=== PATIENT | male | born 1955 | race Caucasian/White ===

== ENCOUNTER 2020-02-22 09:58 | Outpatient (CLI) | payer MEDICARE, SELFPAY ==
--- NOTE | 2020-02-22 10:48 | ECG_ITS ---
Measurements Intervals [place] Rate: 70 P: 60 VT: 155 QRS: 25 QRSD: 86 T: 42 QT: 365 QTc: 395 Interpretive Statements SINUS RHYTHM NORMAL ECG Electronically Signed On 02-22-2020 10:54:12 [employer] by Malvin Whitman D.O.
[2020-02-22 11:07] LABS: Basophils Absolute Auto 0.1 K/mm3 (0.0-0.1); Basophils Percent Auto 0.9 % (0.2-1.2); Eosinophils Absolute Auto 0.1 K/mm3 (0-0.3); Eosinophils Percent Auto 1.7 % (0-4.4); Hematocrit 42.7 % (42.0-52.0); Lymphocytes Absolute Auto 1.42 K/mm3 (0.9-3.2); Lymphocytes Percent Auto 26.6 % (18.3-44.2); Mean Corpuscular HGB Conc 32.8 g/dl (32-36); Mean Corpuscular Hemoglobin 31.4 pg (26-34); Mean Corpuscular Volume 95.7 fl (80-100); Mean Platelet Volume 9.4 fl (7.4-10.4); Monocytes Absolute Auto 0.5 K/mm3 (0.1-0.6); Monocytes Percent Auto 8.8 % (2.6-8.5); Neutrophils Absolute Auto 3.3 K/mm3 (1.3-6.7); Platelet Count Result 223 k/mm3 (150-375); Red Blood Count 4.46 M/mm3 (4.6-6.20); Red Cell Distribution Width 13.3 % (11.5-14.5); White Blood Count 5.3 K/mm3 (4.5-10.0)
[2020-02-22 11:18] LABS: Alanine Aminotransferase 20 U/L (4-50); Albumin Level 4.3 g/dL (3.5-5.1); Alkaline Phosphatase 56 U/L (38-126); Anion Gap 5 mmol/L (8-16); Aspartate Amino Transferase 27 U/L (17-59); Bilirubin,Total 0.4 mg/dL (0.2-1.3); Blood Urea Nitrogen 15 mg/dL (9-20); Calcium 9.3 mg/dL (8.4-10.2); Carbon Dioxide 32 mmol/L (22-30); Chloride 104 mmol/L (98-107); Estimated Glomerular Filt Rate > 60; Glucose 100 mg/dL (75-110); Potassium 4.5 mmol/L (3.4-5.0); Sodium 141 mmol/L (137-145)
[2020-02-22 11:20] LABS: INR 0.9; Prothrombin Time 13.1 Seconds (11.1-14.7)
[2020-02-22 11:21] LABS: Partial Thromboplastin Time 26.4 SECONDS (22.3-36.8)
== END 2020-02-22 09:59 | disposition home or self-care (01) ==
LOC: ANHSURGERY 10:07
PROVIDERS: Visit Provider Urology
DX: Z01.818 Encounter for other preprocedural examination (principal); C61 Malignant neoplasm of prostate
CPT/HCPCS: 36415; 80053; 85025; 85610; 85730; 86850; 86900; 86901; 93005

== ENCOUNTER 2020-03-01 00:34 | Outpatient (CLI) | payer MEDICARE, SELFPAY ==
[2020-03-01 20:15] LABS: SARS-CoV-2 RNA PCR Negative
== END 2020-03-01 00:35 | disposition home or self-care (01) ==
LOC: ANHCOVIDDT 00:34
PROVIDERS: Visit Provider Urology
DX: Z01.812 Encounter for preprocedural laboratory examination (principal); Z11.59 Encounter for screening for other viral diseases
CPT/HCPCS: 87635; C9803; U0003

== ENCOUNTER 2020-03-06 08:37 | Observation (INO) | payer MEDICARE, SELFPAY ==
[2020-02-22 09:24] VITALS: BP 138/70; PULSE 68; RESP 20; TEMP 37.2; O2SAT 100
[2020-02-22 10:25] VITALS: BMI 25.0
[2020-03-04] VITALS (15 sets, daily range): BP systolic 109–151; BP diastolic 58–84; PULSE 80–117; RESP 11–20; TEMP 36.1–36.9; O2SAT 94–100
--- NOTE | 2020-03-04 06:07 | WPDHPUPDATE1 ---
History and Physical Update Update Date/Time: 03/04/20 06:07 History and Physical has been reviewed, including an updated exam of the patient. There are NO changes in the patient's condition. Risks, benefits, and alternatives have been discussed and questions answered. Patient agrees to proceed with procedure. Proceed with robotic assist nerve sparing prostatectomy with possible plnd
[2020-03-04] MEDS: LACTATED RINGERS 1,000 ML 30 ML IV CONT ×2 (06:37→11:44)
--- NOTE | 2020-03-04 06:58 | P.PNAN_ITS ---
Anes - Initial Pre Proc Eval Procedure: Operation Date: 03/04/20 07:30 Proposed Procedures p Robotic Assisted Nerve Sparing Prostatectomy, Possible Pelvic Lymph Node Dissection - Wilmer Rojas MD Date/Time: 03/04/20 06:58 Surgeon: Wilmer Rojas MD Pre Op Diagnosis: Prosate Ca Patient Data Age: 64 Gender: M Height: 1.68 m Weight: 70.2 kg Last Vital Signs Temp 37.2 C 02/22/20 09:24 Pulse 68 02/22/20 09:24 Resp 20 02/22/20 09:24 BP 138/70 02/22/20 09:24 Pulse Ox 100 02/22/20 09:24 Allergies Allergy/AdvReac Type Severity Reaction Status Date / Time meperidine [From Demerol] Allergy Severe Hives Verified 03/04/20 06:08 Home Medications Medication Instructions Recorded Confirmed Type famotidine-Ca carb-mag hydrox 1 tablet PO HS 02/22/20 03/04/20 History [Pepcid Complete] Patient hx anesthesia problems: none Family hx anesthesia problems: none [facility] Past Medical History Medical History (Updated 03/04/20 @ 06:58 by Adama Mcelroy DO) GERD (gastroesophageal reflux disease) Prostate cancer Social History Social History Smoking status: Never smoker Alcohol intake: current Alcohol use details: STATES MAYBE 3 BEERS/MONTH Substance use: never Living arrangements: with family Spiritual care concerns: No Anes - Eval Final PreProcedure Day of Procedure 03/04/20 06:58 Patient weight: normal Heart: regular rate and rhythm Lungs: clear to auscultation and normal air movement Airway: Mallampati scale class II Neurological: alert and oriented Last oral intake: >/= 8 hours ASA classification: III Emergent: no Anesthetic plan: proceed Anesthesia type and monitoring: general ETT and standard monitoring Informed Consent: The patient's anesthetic plan and its attendant risks and benefits were discussed with the patient/family/POA. Questions were solicited and answers provided to the satisfaction of the patient/family/POA.
[2020-03-04] MEDS: ceFAZolin 2 GM/D5W 50 ML 2 GM/50 ML BAG IVPB (07:15)
[2020-03-04] MEDS: BUPIVACAINE HCL 0.5% PF 30 ML VIAL INFILTRATE (08:10)
--- NOTE | 2020-03-04 11:30 | P.OP_ITS ---
Procedure Note - Detailed Date of procedure: 03/04/20 Pre-op diagnosis: Prosate Ca Post-op diagnosis: same Procedure performed: Robotic assisted nerve-sparing prostatectomy with left pelvic lymph node dissection Description of procedure: Patient is taken to the operative suite and correctly identified. Once anesthesia was obtained was placed in dorsal lithotomy position and prepped and draped usual sterile fashion. Eighteen Japanese Roberson was placed with 20 cc in balloon. We made a supraumbilical incision and carried it down to the rectus fascia. Veress needle was inserted the abdomen was insufflated to 15 mmHg pressure. Camera port trocar was then placed in direct vision. The other appropriate working ports were then placed in their standard locations. The robot was docked after the patient was placed in steep Trendelenburg. We started out by taking down some adhesions along the left side where the sigmoid colon is. We then did a posterior approach. The seminal vesicles were dissected out in their entirety. The vas were transected. Plane between the prostate and the rectum was developed. Bladder was then taken down in a standard fashion. Space of Retzius was developed bilaterally. Puboprostatic ligaments were taken down. Dorsal venous complex was isolated using an 0 Vicryl in secured to the pubic bone. Bladder neck was then opened. He has very prominent lobes bilaterally which were pushing into the bladder and this was visualized on cystoscopy preoperatively. It was apparent that the bladder neck would have a wider opening. We were able to dissect the bladder off the prostate. An open the posterior bladder neck. Previously dissected seminal vesicles were visualized. Pedicles were taken using clips. Bilateral nerve-sparing was then performed in a standard fashion. Prostate was then dissected off of the rectum. Dorsal venous complex was then transected the urethra was also transected. Specimen was placed in Endo-Catch bag. Left pelvic lymph node dissection was then performed as he was positive on the left side. Borders were the external iliac vein, Andrew's ligament, obturator nerve, and bifurcation of the vessels. The obturator nerve was visualized at all times. Clips were placed proximally and distally on the lymph node packet. Surgicel was then placed in the fossa. Bladder neck was then reconstructed by placing 2 0 Vicryl at the 3 and 9 o'clock position. We then reapproximated the non VA Anurag the posterior urethral tissue. V lock suture was then used to anastomose the urethral stump to the bladder neck. There was good mucosa to mucosa approximation throughout. Eighteen Japanese Roberson with 10 cc in the balloon was then placed. The bladder was irrigated with 120 cc no evidence for extravasation. Mingo drain was then placed through the 3rd working port site an d secured. All lap count needle count sponge counts were correct. Blood loss was approximately 100 cc. The specimen was brought out through the midline incision. Rectus fascia was closed using 0 Vicryl in a running fashion. Subcuticular stitch was were then placed. Condition is stable on transfer to recovery room. Surgeon: Wilmer Rojas MD Estimated blood loss (mL): 100 Drains: Yes Packing: No Pathology: yes Complications: No immediate complications Condition: stable Disposition: PACU
[2020-03-04] MEDS: fentaNYL CITRATE INJ (*CRX) 100 MCG/2 ML VIAL 25 MCG IV PUSH ×2 (12:32→12:50)
--- NOTE | 2020-03-04 13:00 | PC.NURSE ---
This patient, Esvin Rosa, was admitted to 2 Medical Room 241-01. Patient/family oriented to hospital policies and general routines including ID bracelet, bed and alarms, visiting hours, pain management, procedures, bathroom and other care routines, personal items, smoking policy, room service/diet, and visiting hours. Information on how to activate the Rapid Response Team has been discussed. Patient/Family are encouraged to report perceived risks to care and to ask questions if they do not understand what they are told or what they should do.
[2020-03-04] MEDS: LACTATED RINGERS 1,000 ML 125 ML IV CONT ×2 (13:26→20:53)
[2020-03-04] MEDS: ONDANSETRON INJ 4 MG/2 ML VIAL IV PUSH (13:26)
[2020-03-04] MEDS: HYDROcodone/acetaminophen (*CRX) 5-325 MG TABLET 1 TAB PO (13:32)
[2020-03-05] VITALS (7 sets, daily range): BP systolic 103–139; BP diastolic 58–73; PULSE 77–98; RESP 16–18; TEMP 36.1–37; O2SAT 97–100
[2020-03-05] MEDS: HYDROcodone/acetaminophen (*CRX) 5-325 MG TABLET 1 TAB PO (01:28)
--- NOTE | 2020-03-05 01:39 | PC.NURSE ---
Pt awake and pain meds given, states hand and wrist are still numb but better.
[2020-03-05] MEDS: HYOSCYAMINE SULFATE 0.125 MG TABLET SUBLINGUAL ×3 (02:03→18:12)
[2020-03-05] MEDS: LACTATED RINGERS 1,000 ML 125 ML IV CONT (04:57)
[2020-03-05 05:55] LABS: Hematocrit 31.4 % (42.0-52.0); Hemoglobin 10.7 g/dL (14.0-18.0)
[2020-03-05 06:25] LABS: Anion Gap 2 mmol/L (8-16); Blood Urea Nitrogen 13 mg/dL (9-20); Carbon Dioxide 31 mmol/L (22-30); Chloride 102 mmol/L (98-107); Estimated CRCL calculation 82 ml/min; Estimated Glomerular Filt Rate > 60; Glucose 99 mg/dL (75-110); Potassium 4.2 mmol/L (3.4-5.0); Sodium 135 mmol/L (137-145)
[2020-03-05] MEDS: ACETAMINOPHEN 500 MG TABLET 1000 MG PO ×2 (08:28→18:07)
--- NOTE | 2020-03-05 12:53 | WPDUROPN2 ---
Progress Note: A&P Assessment and Plan (1) Prostate cancer: Code(s): C61 - Malignant neoplasm of prostate Status: Inactive Assessment and Plan: Patient encouraged to be more active at this time. He is ok to be discharged when he feels that he is ready to go. He is stable enough to be discharged at anytime. Ok to remove KORY drain, keep marks in until after Cystogram. Subjective Subjective Date/Time Seen: 03/05/20 12:53 POD #1 Robotic assisted nerve-sparing prostatectomy with left pelvic lymph node dissection Patient doing very well, pain under good control. Wants to get up and move around to determine if he is well enough to go home. Review of Systems Respiratory: Respiratory: Reports no additional respiratory complaints Gastrointestinal: Gastrointestinal: Reports abdominal pain, Denies nausea and Denies vomiting Genitourinary: Genitourinary: Denies hematuria and Denies flank pain Exam Resp: Effort & Inspection: normal respiratory effort Cardio: Rate: regular rate GI: Inspection: incision (all are well approximated, no drainage or edema present) GI Palp: Yes Soft to palpation and No Tenderness to palpation present (GI) : General: Yes no CVA tenderness Urinary Catheter: Urinary Catheter: patent and draining and urine clear Extrem: General: no edema Objective Data Vital Signs Vital Signs: Vital Signs - 24 hr 03/04/20 12:55 03/04/20 13:20 03/04/20 13:35 Temperature 97.1 F L 97.3 F L Pulse Rate 87 99 97 Respiratory Rate 18 16 16 Blood Pressure 121/84 136/64 131/63 Pulse Oximetry 94 100 96 03/04/20 14:05 03/04/20 15:05 03/04/20 19:00 Temperature 97.5 F L 97.8 F 98.5 F Pulse Rate 102 H 96 104 H Respiratory Rate 16 16 16 Blood Pressure 130/62 132/70 128/70 Pulse Oximetry 98 97 98 03/04/20 20:00 03/04/20 21:18 03/04/20 22:43 Temperature 98.3 F 98.3 F Pulse Rate 117 H 87 Respiratory Rate 20 16 Blood Pressure 142/70 H 109/60 Pulse Oximetry 99 99 97 03/05/20 06:43 03/05/20 08:28 03/05/20 09:39 Temperature 97.0 F L 98.3 F Pulse Rate 98 95 Respiratory Rate 16 18 18 Blood Pressure 103/66 125/67 Pulse Oximetry 97 97 97 Intake/Output Intake/Output: Intake & Output 03/02/20 03/03/20 03/04/20 03/05/20 23:59 23:59 23:59 23:59 Intake Total 3590 1780 Output Total 675 2450 Balance 2915 -274 Meds/Results Medications: Active Medications Generic Name Dose Route Start Last Admin Trade Name Freq PRN Reason Stop Dose Admin Acetaminophen 1,000 mg 03/05/20 01:18 03/05/20 08:28 Acetaminophen 500 Mg Tablet PO 1,000 mg Q6H PRN Administration Mild Pain (1-3) or Fever Hydrocodone Bitart/Acetaminophen 1 tab 03/04/20 12:58 03/05/20 01:28 Hydrocodone/Acetaminophen (*Crx) 5-325 Mg Tablet PO 1 tab Q6H PRN Administration Pain Rated 1-3 Hydrocodone Bitart/Acetaminophen 2 tab 03/04/20 12:58 Hydrocodone/Acetaminophen (*Crx) 5-325 Mg Tablet PO Q6H PRN Pain Rated 4-6 Hyoscyamine 0.125 mg 03/04/20 12:58 03/05/20 08:26 Hyoscyamine Sulfate 0.125 Mg Tablet SUBLINGUAL 0.125 mg Q4H PRN Administration Bladder Spasm Lactated Ringer's 1,000 mls @ 125 mls/hr 03/04/20 12:58 03/05/20 04:57 Lr - Lactated Ringers Iv IV CONT 125 mls/hr .Q8H BELLE Administration Ketorolac Tromethamine 15 mg 03/04/20 12:58 Ketorolac 15 Mg/Ml Vial (*Bkc) IV PUSH 03/05/20 12:59 Q6H PRN Pain Rated 4-6 Levofloxacin 500 mg 03/05/20 09:00 03/05/20 08:26 Levofloxacin Tab 500 Mg Tablet PO 500 mg DAILY BELLE Administration Naloxone HCl 0.1 mg 03/04/20 12:58 Naloxone Hcl 0.4 Mg/Ml Vial IV PUSH Q2M PRN Opiate Reversal Ondansetron HCl 4 mg 03/04/20 12:58 03/04/20 13:26 Ondansetron Inj 4 Mg/2 Ml Vial IV PUSH 4 mg Q6H PRN Administration Nausea And Vomiting Labs Labs: Laboratory Results - last 24 hr 03/05/20 03/05/20 05:13 05:13 Hgb 10.7 L D Hct 31.4 L Sodium 13
--- NOTE | 2020-03-05 14:10 | P.PNAN_ITS ---
Anes - Prog Note Post-Op Date/Time: 03/05/20 14:10 Cardiovascular status: normal Respiratory status: normal Airway patency: baseline Mental status: baseline Post-Op hydration status: normal Vital Signs: Last Vital Signs Temp 36.7 C 03/05/20 13:14 Pulse 98 03/05/20 13:14 Resp 18 03/05/20 13:14 BP 139/58 L 03/05/20 13:14 Pulse Ox 100 03/05/20 13:14 Pain Score (VAS): 0/10. Patient resting in bed at time of assessment, appears comfortable. Patient described numbness and tingling of left and right hands bilateral. Left hand according to patient is more numb than right hand. General numbness and tingling of right hand according to patient has begun to dissipate since time of procedure. Left hand numbness appears to be most localized to the palmar side of the hand at the thumb and index finger region according to the patient. Patient notes some numbness and tingling of the dorsum of the left hand at the thumb and index finger region. Encouraged patient to follow up if sym ptoms continue. Patient had full musculoskeletal control of bilateral hands. No additional concerns or issues addressed by patient at time of assessment. I/O: Intake & Output 03/04/20 03/05/20 03/05/20 23:59 07:59 15:59 Intake Total 1890 1300 1480 Output Total 293 55 4027 Balance 1415 1250 -932 Laboratory Tests 03/05/20 05:13 03/05/20 05:13 03/05/20 03/05/20 05:13 05:13 Hgb 10.7 L D Hct 31.4 L Sodium 135 L Potassium 4.2 Chloride 102 Carbon Dioxide 31 H Anion Gap 2 L BUN 13 Creatinine 0.70 Estim Creat Clear Calc 82 Estimated GFR > 60 Glucose 99 Calcium 8.0 L Post-procedural complaints: none Patient Feedback: Patient satisfied with anesthetic care.
[2020-03-06 02:40] VITALS: BP 124/68; PULSE 81; RESP 16; TEMP 36.8; O2SAT 98
[2020-03-06] MEDS: ACETAMINOPHEN 500 MG TABLET 1000 MG PO (05:50)
[2020-03-06 06:00] VITALS: BP 137/74; PULSE 88; RESP 16; TEMP 36.7; O2SAT 97
--- NOTE | 2020-03-06 09:13 | WPDUROPN2 ---
Progress Note: A&P Assessment and Plan (1) Prostate cancer: Code(s): C61 - Malignant neoplasm of prostate Status: Acute Assessment and Plan: Patient ok to be discharged home today. Will go home with marks and f/u for Cystogram next week on 03/12/2020 at 8:30, then to the office for marks removal if Cystogram is normal. Subjective Subjective Date/Time Seen: 03/06/20 09:13 POD #2 Robotic assisted nerve-sparing prostatectomy with left pelvic lymph node dissection Patient doing very well, pain under good control, and improved since KORY drain was removed. Review of Systems Respiratory: Respiratory: Reports no additional respiratory complaints Gastrointestinal: Gastrointestinal: Reports abdominal pain, Denies nausea and Denies vomiting Genitourinary: Genitourinary: Denies hematuria and Denies flank pain Exam Resp: Effort & Inspection: normal respiratory effort Cardio: Rate: regular rate GI: Inspection: incision (well approximated, no drainage, edema or redness present) GI Palp: Yes Soft to palpation and Yes Tenderness to palpation present (GI) (at incision sites only) : General: Yes no CVA tenderness Urinary Catheter: Urinary Catheter: patent and draining and urine clear Extrem: General: no edema Objective Data Vital Signs Vital Signs: Vital Signs - 24 hr 03/05/20 09:39 03/05/20 13:14 03/05/20 14:25 Temperature 98.3 F 98.1 F Pulse Rate 95 98 Respiratory Rate 18 18 Blood Pressure 125/67 139/58 L Pulse Oximetry 97 100 98 03/05/20 18:00 03/05/20 22:52 03/06/20 02:40 Temperature 98.6 F 98.0 F 98.2 F Pulse Rate 85 77 81 Respiratory Rate 18 16 16 Blood Pressure 126/73 127/72 124/68 Pulse Oximetry 97 98 98 03/06/20 06:00 Temperature 98.1 F Pulse Rate 88 Respiratory Rate 16 Blood Pressure 137/74 Pulse Oximetry 97 Intake/Output Intake/Output: Intake & Output 03/03/20 03/04/20 03/05/20 03/06/20 23:59 23:59 23:59 23:59 Intake Total 3590 3790 300 Output Total 843 7084 850 Balance 6136 -7488 -437 Meds/Results Medications: Active Medications Generic Name Dose Route Start Last Admin Trade Name Freq PRN Reason Stop Dose Admin Acetaminophen 1,000 mg 03/05/20 01:18 03/06/20 05:50 Acetaminophen 500 Mg Tablet PO 1,000 mg Q6H PRN Administration Mild Pain (1-3) or Fever Hydrocodone Bitart/Acetaminophen 1 tab 03/04/20 12:58 03/05/20 01:28 Hydrocodone/Acetaminophen (*Crx) 5-325 Mg Tablet PO 1 tab Q6H PRN Administration Pain Rated 1-3 Hydrocodone Bitart/Acetaminophen 2 tab 03/04/20 12:58 Hydrocodone/Acetaminophen (*Crx) 5-325 Mg Tablet PO Q6H PRN Pain Rated 4-6 Hyoscyamine 0.125 mg 03/04/20 12:58 03/05/20 18:12 Hyoscyamine Sulfate 0.125 Mg Tablet SUBLINGUAL 0.125 mg Q4H PRN Administration Bladder Spasm Levofloxacin 500 mg 03/05/20 09:00 03/05/20 08:26 Levofloxacin Tab 500 Mg Tablet PO 500 mg DAILY BELLE Administration Naloxone HCl 0.1 mg 03/04/20 12:58 Naloxone Hcl 0.4 Mg/Ml Vial IV PUSH Q2M PRN Opiate Reversal Ondansetron HCl 4 mg 03/04/20 12:58 03/04/20 13:26 Ondansetron Inj 4 Mg/2 Ml Vial IV PUSH 4 mg Q6H PRN Administration Nausea And Vomiting
--- NOTE | 2020-03-06 09:18 | PM.DS ---
DS: Admitting Diagnosis Admitting Diagnosis Admitting Diagnosis: Prostate Cancer DS: Summary Hospital Course Hospital Course: Robotic assisted nerve-sparing prostatectomy with left pelvic lymph node dissection Time Spent with Patient Time attestation: Pre OP Diagosis: Prostate Cancer Post Operative Diagnosis: Prostate Cancer Patient underwent a Robotic assisted nerve-sparing prostatectomy with left pelvic lymph node dissection, on 03/04/[address] Aurelio Rojas. He tolerated the procedure well and was transferred to recovery in stable condition. He was then transferred to the floor for observation. He did well with recovery, but did have some weakness, fatigue and abdominal pain initially. Once he was able to get up and be more active he started to gain some strength and the pain was more controlled with time and after removal of the KORY drain yesterday. He is tolerating his diet well. He will be discharged home today with Hydrocodone, Levsin and Bactrim. He had no previous listed home medications to resume. He will resume diet as tolerated and activity, no driving or straining. He will go home with his marks catheter and follow up in the office next week after his Cystogram on 03/12/2020. Exam Resp: Effort & Inspection: normal respiratory effort Cardio: Rate: regular rate GI: Inspection: incision (well approximated, no drainage, edema or redness) GI Palp: Yes Soft to palpation and Yes Tenderness to palpation present (GI) (at incison sites only) : General: Yes no CVA tenderness Urinary Catheter: Urinary Catheter: patent and draining and urine clear Extrem: General: no edema DS: Data Data Completed and Pending Pending studies at discharge: Pending at discharge 03/04/20 09:47 Surgical [PTH] Routine Discharge Plan Discharge Patient Disposition: Home, Self-Care Discharge Instructions: Follow up for Cystogram on 03/12/2020. Arrive at Radiology 8:30, Cystogram at 9am, call [phone] when you arrive at radiology. Then immediately up to the office for marks removal if cystogram is normal. Call if a fever develops >102, urine becomes bloody or cloudy, if incisions should develop drainage, redness or open up. Patient Instructions: Antibiotic Form Stand Alone Forms: Fiber Supplement, General Discharge Instructions Follow-up/Referrals: Wilmer Rojas MD [Physician] - Discharge Medications: New hydrocodone-acetaminophen 5-325 mg Tablet 2 tab PO Q6H PRN (Reason: Pain Rated 4-6) 5 Days Qty: 20 RF: 0 hyoscyamine sulfate [Anaspaz] 0.125 mg Tablet,Disintegrating 0.125 mg sublingual Q4H PRN (Reason: Bladder Spasm) 5 Days Qty: 30 RF: 0 sulfamethoxazole-trimethoprim [Bactrim DS] 800-160 mg tablet 1 tablet PO DAILY 5 Days Qty: 5 RF: 0 Discontinued Pepcid Complete 10-800-165 mg Tablet,Chewable 1 tablet PO HS RF: 0
[2020-03-06 09:48] VITALS: PULSE 92; RESP 16; O2SAT 99
== END 2020-03-06 10:35 | disposition home or self-care (01) ==
LOC: ANHSURGERY 09:36 → ANH2MED 09:36
PROVIDERS: Admitting Provider Urology; Visit Provider Urology
PROC: 0VT04ZZ Resection of Prostate, Percutaneous Endoscopic Approach (ICD-10-PCS; CPT 55867; principal; 2020-03-04 07:30)
DX: C61 Malignant neoplasm of prostate (principal); K21.9 Gastro-esophageal reflux disease without esophagitis
CPT/HCPCS: 55866; 38570; S2900; 36415; 80048; 85014; 85018; 88304; 88305; 88307; 88309; 96361; 96374; 96375; A9270; G0378; G0379; J0690; J1100; J1170; J2250; J2370; J2405; J2704; J2710; J3010; J7120

== ENCOUNTER 2020-03-12 08:38 | Outpatient (CLI) | payer MEDICARE, SELFPAY ==
--- NOTE | ~2020-03-12 | XR_ITS ---
EXAMINATION: XR cystogram DATE: 03/12/2020 09:18 INDICATION: Prostate cancer TECHNIQUE: Water-soluble contrast was gravity-infused through the patient's Roberson catheter. Multiple fluoroscopic images were obtained. Fluoroscopy exposure time was 1.0 minutes. The DAP for this proced ure was 12.857 Gycm2. COMPARISON: None. FINDINGS: The bladder contour is normal. No contrast extravasation is identified. There is mild osteo arthritis of the hips and moderate lower lumbar spondylosis. The bowel gas pattern is normal. IMPRESSION: 1. No contrast extravasation identified. Reviewed, dictated and finalized at location A. [employer]
== END 2020-03-12 08:39 | disposition home or self-care (01) ==
PROVIDERS: Visit Provider Urology
DX: C61 Malignant neoplasm of prostate (principal)
CPT/HCPCS: 51600; 74430; Q9967

== ENCOUNTER 2020-12-12 15:43 | Emergency (ER) | payer MEDICARE, SELFPAY ==
--- NOTE | ~2020-12-12 | XR_ITS ---
XR cervical spine 4-5V 12/12/2020 16:58 Indication: Neck pain for 6 weeks Procedure: 5 views cervical spine Comparison: No prior studies for comparison. Findings: Vertebral body heights are maintained. No significant disc narrowing. No prevertebral soft tissue swelling. There is mild multilevel uncinate hypertrophy. Lung apices are normal. No fracture o r traumatic malalignment. Impression: 1: No acute abnormality of the cervical spine. Reviewed, dictated and finalized at location A. Impression: 1: No acute abnormality of the cervical spine.
--- NOTE | ~2020-12-12 | XR_ITS ---
LUMBAR SPINE INDICATION: 3 views lumbar spine TECHNIQUE: 3 views lumbar spine COMPARISON: None FINDINGS: No fracture, subluxation or dislocation. No evidence for spondylolysis or spondylolisthesi s. Vertebral bodies and disk spaces are preserved. Mild multilevel facet hypertrophy. IMPRESSION: 1: No acute abnormality of the lumbar spine identified. Reviewed, dictated and finalized at location A.
[2020-12-12 15:54] VITALS: BP 151/71; PULSE 95; RESP 18; TEMP 37.6; O2SAT 99
--- NOTE | 2020-12-12 16:06 | ED.NECK ---
HPI - Neck Pain/Injury General Chief Complaint: Neck Pain/Injury Stated Complaint: Neck Pain Time Seen by Provider: 12/12/20 16:06 Source: patient Mode of arrival: ambulatory Limitations: no limitations History of Present Illness HPI Narrative: Milo Rosa is a 65 yo male with a PMH of prostate cancer that he had a prostatectomy for February 2020, comes to [facility] with pain in his neck and length of cervical spine and also his left leg sciatic. 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 He lives in and states that he is been doing this with his for the past 6 to 7 years and has not had problems until now. He has somewhat restricted movement in his neck pain with raising arms overhead or trying to touch his arms to the top of his shoulders he also has pain when he tries to move his head down and to the left or right side pain on side of the direction he is turning. He also has complaining of lower left lumbar pain with radiation of pain into his buttock and posterior left thigh In addition he also has fatigue/malaise by late afternoon from walking around is unclear the origin but he says he actually feels physically ill by late afternoon. He is slow getting up in the morning because of pain in his neck and back which tends to resolve with movement until his stroke with a malaise late day Primary homebase is in [place] although he is here because of visiting his [id number] the plan is for me to refer him to a primary care physician and get him in soon to get blood work done particularly for potential titers from ticks are other pathogens that he may have come in contact with in [place] Cervical spine and lumbar x-rays being done presently and assuming they are normal we will treat with medication Related Data Allergies Allergy/AdvReac Type Severity Reaction Status Date / Time meperidine [From Demerol] Allergy Severe Hives Verified 12/12/20 16:20 Review of Systems Review of Systems: CONSTITUTIONAL: Denies fever, chills, sweats. EYES: Denies visual changes, redness, discharge. ENT: Denies rhinorrhea, congestion, sore throat, otalgia. CARDIOVASCULAR: Denies chest pain, palpitations, edema. RESPIRATORY: Denies dyspnea, wheezing, cough GASTROINTESTINAL: Denies abdominal pain, nausea, vomiting, diarrhea. GENITOURINARY: Denies dysuria, hematuria, abnormal discharge SKIN: Denies rash or itching. NEUROLOGIC: Denies numbness, or focal weakness. PSYCHIATRIC: Denies anxiety or depression. Cervical spine pain and limitation of movement of head and arms, left lower lumbar pain with radiation into his buttock and thigh Overall with malaise in late day [facility] Past Medical History Medical History (Updated 12/12/20 @ 17:19 by Trish Musa CNP) GERD (gastroesophageal reflux disease) Prostate cancer Surgical History Surgical History (Updated 12/12/20 @ 16:47 by Trish Musa CNP) History of prostatectomy Family History Family History (Updated 12/12/20 @ 16:48 by Trish Musa CNP) Father Malignant neoplasm of prostate Social History Social History Smoking status: Never smoker Alcohol intake: current Drinks per week: 1 Alcohol use details: STATES MAYBE 3 BEERS/MONTH Substance use: never Substance use type: does not use Gender identity (if verbalized by the patient): Male Sexual Orientation (if Verbalized by the Patient): Straight or Heterosexual Spiritual care concerns: No Comments At time of signature, I agree with nursing past medical, surgical, social and family history. There is no relevant family history pertinent to the presenting complaint. Exam Narrative: GENERAL: This is a well-nourished, well-developed patient, in moderate distress. HEAD: normocephalic, atraumatic. EYES: PSclera clear/white. Vision is grossly intact. EARS: External ears normal, . Hearing grossly intact. NOSE: External
--- NOTE | 2020-12-12 17:10 | PC.NURSE ---
1600- Palpable firmness to right posterior neck at approx c 1-2 level and left posterior at approx c4-5. Tender to palpation
== END 2020-12-12 17:38 | disposition home or self-care (01) ==
PROVIDERS: Emergency Provider Nurse Practitioner
DX: M54.5 Low back pain (principal); S16.1XXA Strain of muscle, fascia and tendon at neck level, initial encounter; X58.XXXA Exposure to other specified factors, initial encounter; K21.9 Gastro-esophageal reflux disease without esophagitis; Z85.46 Personal history of malignant neoplasm of prostate; Z90.79 Acquired absence of other genital organ(s)
CPT/HCPCS: 72050; 72100; 99213; G0463